=== PATIENT | female | born 1960 | race Caucasian/White ===

== ENCOUNTER 2024-08-23 06:42 | Day surgery (SDC) | payer MEDICARE, SELFPAY ==
[2024-08-16 10:11] VITALS: BMI 33.6
[2024-08-23] MEDS: LACTATED RINGERS 1000ML 1,000 ML 25 ML IV (07:09)
[2024-08-23 07:13] VITALS: BP 141/81; PULSE 65; RESP 18; TEMP 36.2; O2SAT 100
--- NOTE | 2024-08-23 07:29 | P.PNANES_ITS ---
[facility] Disclaimer: The information contained in this section may have been updated after the patient was seen, as this information can be updated by other users. Medical History Barretts esophagus Restless leg Surgical History History of esophagogastroduodenoscopy (EGD) History of surgery on lower extremity History of eyelid surgery Hx of breast reduction, elective Hx of cholecystectomy History of appendectomy Family History Other Cancer Family history of TIAs Family history of myocardial infarction Social History Smoking Status: Never smoker alcohol intake: current alcohol intake frequency: other substance use type: denies use current occupational status: retired Travel in the last 8 weeks: Inside the [place] [facility] Anesthesia Checklist Patient Identification Patient Identification: Arm Band Structural Data Admitted From: Home Planned Operative Procedure/s: EGD/Colonoscopy Consent for Planned Operative Procedure(s) Verified: Yes Verified Documents: Surgical Consent and History and Physical NPO Status Verified Time NPO: 00:00 Additional verifications Anesthesia Reactions: No Airway Assessment Mallampati Score:: Class II C-Spine Mobility Assessed: Yes TMJ Mobility Assessed: Yes Dentition: Good Dentition Neurological Assessment Level of Consciousness: Awake, Alert and Appropriate Anesthesia Plan Anesthesia Risk discussed: Yes Anesthesia Plan: Verified ASA Class: II Anesthesia Type: MAC
--- NOTE | 2024-08-23 07:46 | P.HP_ITS ---
History of Present Illness *Admission Date: 08/23/24 *Reason for visit:: Cox's esophagus and intractable heartburn and reflux and screening *History of present illness: Mrs. Ramirez is a 63-year-old female who is here for surveillance EGD secondary to history of Cox's esophagus and screening for colon cancer/screening colonoscopy. She does have intractable heartburn and reflux despite being on lansoprazole. The examination is deemed medically necessary for surveillance EGD and screening colonoscopy. The patient has been seen, interviewed and examined prior to the procedure by both myself and the anesthesia provider. [facility] Disclaimer: The information contained in this section may have been updated after the patient was seen, as this information can be updated by other users. Medical History Barretts esophagus Restless leg Surgical History History of esophagogastroduodenoscopy (EGD) History of surgery on lower extremity History of eyelid surgery Hx of breast reduction, elective Hx of cholecystectomy History of appendectomy Family History Other Cancer Family history of TIAs Family history of myocardial infarction Social History (Updated 08/23/24 @ 07:29 by Jacinto Rodarte CRNA) Smoking Status: Never smoker alcohol intake: current alcohol intake frequency: other substance use type: denies use current occupational status: retired Travel in the last 8 weeks: Inside the [place] Have you lived/traveled outside US in past 30 days?: No Contact w/someone who lives/traveled outside US past 30 days?: No Exposure to someone with infectious disease in past 14 days?: No Do you have a fever (greater than 100.4 F or 38 C)?: No Have you tested positive for COVID-19: No Exposed to someone with COVID-19 in past 14 days?: No Do you have a sore throat?: No Do you have a cough?: No Do you have any weakness?: No Are you experiencing any nausea/vomitting?: No Do you have any diarrhea?: No Are you experiencing any unusual bleeding?: No Do you have any muscle aches/pain?: No Do you have any abdominal pain?: No Are you experiencing loss of taste or smell?: No Other Medical History Have you received the Pneumonia Vaccine: Yes Review of Systems Review of Systems Review of systems (narrative): Negative *Cardiovascular Comments: Negative *Gastrointestinal Comments: Negative *Genitourinary Comments: Negative *Musculoskeletal Comments: Negative *Neurologic Comments: Negative Meds Home Medications and Allergies Home Medications ?Medication ?Instructions ?Recorded ?Confirmed ?Type lansoprazole 30 mg capsule,delayed 30 mg PO DAILY 07/04/24 08/23/24 History release losartan 25 mg tablet 25 mg PO DAILY 07/04/24 08/16/24 History ropinirole 2 mg tablet 2 mg PO TID 07/04/24 08/23/24 History semaglutide (weight loss) 1 mg/0.5 1 mg SQ WEEKLY 07/04/24 08/23/24 History mL subcutaneous pen injector sertraline 50 mg tablet 50 mg PO DAILY 07/04/24 08/16/24 History tramadol 50 mg tablet 50 mg PO DAILYP PRN Pain 07/04/24 08/16/24 History New Prescriptions to Start Prescriptions: Allergies Allergy/AdvReac Type Severity Reaction Status Date / Time No Known Allergies Allergy Verified 07/04/24 09:52 Exam Data for Last 24 hours Vital signs and Labs for Last 24 Hours: Temp Pulse Resp BP Pulse Ox O2 Del Method 97.1 F L 65 18 141/81 H 100 Room Air 08/23/24 07:13 08/23/24 07:13 08/23/24 07:13 08/23/24 07:13 08/23/24 07:13 08/23/24 07:13 *Routine HEENT Exam Head: Present normocephalic Eye: Present EOMI and PERRL ENT: Present mucous membranes moist *Routine Neck Exam Neck: Present supple *Routine Respiratory Exam Respiratory: Present CTA bilaterally *Routine Cardiovascular Exam Cardiovascular: Present RRR *Routine Abdominal Exam Abdominal: Present soft and normoactive bowel sounds; Absent tenderness *Routine Rectal Exam Rectal:: deferred *Routine Genitalia Exam Genitalia:: deferred *Routine Extremities Exam Extremities: Absent cyanosis, clubbing or edema *Routine Skin Exam Skin: Present warm; Absent rash *Routine Neurological Exam Neurological: Present alert and oriented X3 Assessment and Plan *Assessment and plan (1) GERD (gastroesophageal reflux disease): Status: Acute Category: Medical Code(s): K21.9 - Gastro-esophageal reflux disease without esophagitis (2) Short-segment Cox's esophagus: Status: Acute Category: Medical Code(s): K22.70 - Cox's esophagus without dysplasia (3) Screening for colon cancer: Status: Acute Category: Medical Code(s): Z12.11 - Encounter for screening for malignant neoplasm of colon Plan A/P: 1. Surveillance EGD secondary to Cox's and intractable GERD and initial screening colonoscopy is the preprocedural diagnosis. The patient will be anesthetized/sedated using MAC sedation. The patient has been seen and examined. Cardiac and lung assessment prior to the examination is stable. Proceed with planned EGD and colonoscopy
--- NOTE | 2024-08-23 07:49 | P.PCN_ITS ---
[facility] Procedure Note Date: 08/23/24 Time: 08:04 Procedure Note:: Upper Endoscopy Procedure Report: Esophagogastroduodenoscopy with cold biopsies Endoscopost: Sanjeev Lester II, MD Referring Physician: Goldie Champion MD [address] [place] [address], [address], [place] [address] Date of Procedure: August 23, 2024 Equipment: Olympus GIF 190 standard upper endoscope Sedation: MAC sedation Indications: Mrs. Ramirez is a 63-year-old female who is here for surveillance EGD secondary to Cox's esophagus. She did previously have an EGD with [facility] in December 2020 and at that time had short segment Cox's esophagus and I recommended 3-year surveillance interval. She also is having continued heartburn and reflux when lying down with some minor belching and throat firmness. Presently, she is on lansoprazole 30 mg and does state this has controlled her GERD symptoms better. The patient also states that she is improved with weight loss and she has been on semaglutide and lost approximately 40 pounds. She is not having any dysphagia but is due for EGD. She has never had a colonoscopy. The patient has some concerns about PPI therapy and risk of dementia. She does have a very strong family history of dementia and multiple family members. Procedure: Prior to the procedure, a history and physical exam was performed, and patient's medications and allergies were reviewed. The risks, benefits and alternatives of the sedation and procedure were discussed with the patient. All questions were answered and informed consent was obtained. The patient was brought to the procedure room. Patient identification and proposed procedure were verified by the physician and the nurse. The patient was placed in a left lateral decubitus position and the scope was passed under direct vision. Throughout the procedure, the patient's blood pressure, pulse, and oxygen saturations were monitored continuously. The upper GI endoscopy was accomplished without difficulty. The patient tolerated the procedure well. Findings: The scope was passed directly into the upper esophagus and advanced to the third portion of the duodenum. The post bulbar duodenum and duodenal bulb were normal with normal mucosa and conniventes. The scope was withdrawn through a normal duodenal bulb and pylorus into the stomach. There was bile reflux with linear reactive gastropathy of the antrum. There were a few fundic gland polyps in the body and fundus. Upon retroflexion there was a medium size 3 cm hiatal hernia. The diaphragmatic hiatus was at 38 cm from the incisors. The top of the gastric folds were at 35 cm from the incisors. Biopsies were taken from the antrum. The scope was then withdrawn into the esophagus. There was a single tongue of salmon-colored mucosa that extended to 32 cm from the incisors and this was examined by NBI with no dysplasia. Biopsies were obtained from this tongue of Cox's. There was no evidence of reflux esophagitis or rings or strictures. The remainder of the esophageal mucosa was normal. Impression: 1. Single tongue of salmon-colored mucosa/short segment Cox's (extending 3 cm from GE junction) 2. Medium size 3 cm hiatal hernia 3. Bile reflux with mild linear reactive gastropathy Plan: I will follow-up the biopsies. I would recommend continuation of lansoprazole. We will discuss additional treatment options for her chronic GERD. I will proceed with screening colonoscopy.
[2024-08-23 07:51] VITALS: O2SAT 100
--- NOTE | 2024-08-23 08:07 | HMH.PROCNOTE ---
[facility] Procedure Note Date: 08/23/24 Time: 08:15 Procedure Note:: Aborted colonoscopy Procedure Report: Sigmoidoscopy Endoscopist: Sanjeev Lester II, MD Referring physician: Goldie Champion MD [address] [place] [address], [address], [place] [address] Date of Procedure: August 23, 2024 Equipment: Olympus 190 variable stiffness pediatric colonoscope Sedation: MAC sedation Indication: Mrs. Ramirez is a 63-year-old female who is here for initial screening colonoscopy. She reports no abdominal pain, weight loss, change in her bowel habits or rectal bleeding. She reports no family history of colon cancer. Procedure: Prior to the procedure, a history and physical exam was performed, and patient's medications and allergies were reviewed. The risks, benefits and alternatives of the sedation and procedure were discussed with the patient. All questions were answered and informed consent was obtained. The patient was brought to the procedure room. Patient identification and proposed procedure were verified by the physician and the nurse. The patient was placed in a left lateral decubitus position and the scope was passed under direct vision. Throughout the procedure, the patient's blood pressure, pulse, and oxygen saturations were monitored continuously. The colonoscopy was accomplished without difficulty. The patient tolerated the procedure well. Findings: On digital rectal examination, there was normal rectal tone. There were no external hemorrhoids. The scope was then inserted through the anal canal into the rectum and advanced to 60 cm. There was abundant liquid brown stool proximally and the preparation was poor greatly impairing visibility. The procedure was thus aborted. Upon withdrawal, there were a few scattered diverticuli in the sigmoid colon. Impression: 1. Unprepped colonoscopy 2. Left-sided diverticulosis Plan: I would recommend fully prepped colonoscopy with improved bowel preparation.
[2024-08-23 08:16] VITALS: BP 113/64; PULSE 65; RESP 18; TEMP 36.2; O2SAT 93
[2024-08-23 08:26] VITALS: BP 111/64; PULSE 67; RESP 18; O2SAT 95
[2024-08-23 08:36] VITALS: BP 122/58; PULSE 64; RESP 18; O2SAT 97
[2024-08-23 09:20] VITALS: BP 120/61; PULSE 63; RESP 18; O2SAT 98
== END 2024-08-23 09:20 | disposition home or self-care (01) ==
PROVIDERS: Visit Provider Internal Medicine Gastroenterology
PROC: 0DJ08ZZ Inspection of Upper Intestinal Tract, Via Natural or Artificial Opening Endoscopic (ICD-10-PCS; CPT 45378; principal; 2024-08-23 08:00)
DX: K21.9 Gastro-esophageal reflux disease without esophagitis (principal); K22.70 Barrett's esophagus without dysplasia; Z12.11 Encounter for screening for malignant neoplasm of colon; K44.9 Diaphragmatic hernia without obstruction or gangrene; K31.9 Disease of stomach and duodenum, unspecified; K31.7 Polyp of stomach and duodenum; K57.30 Diverticulosis of large intestine without perforation or abscess without bleeding
CPT/HCPCS: 43239; G0121; J7120

== ENCOUNTER 2024-11-29 12:27 | Day surgery (SDC) | payer MEDICARE, SELFPAY ==
[2024-11-27 17:25] VITALS: BMI 34.6
[2024-11-29 13:42] VITALS: BP 126/60; PULSE 68; RESP 18; TEMP 36.2; O2SAT 98
[2024-11-29] MEDS: LACTATED RINGERS 1000ML 1,000 ML 50 ML IV (13:47)
--- NOTE | 2024-11-29 14:00 | P.PNANES_ITS ---
[facility] Disclaimer: The information contained in this section may have been updated after the patient was seen, as this information can be updated by other users. Medical History Barretts esophagus Restless leg Surgical History History of esophagogastroduodenoscopy (EGD) History of surgery on lower extremity History of eyelid surgery Hx of breast reduction, elective Hx of cholecystectomy History of appendectomy Family History Other Cancer Family history of TIAs Family history of myocardial infarction Social History (Updated 08/23/24 @ 07:29 by Jacinto Rodarte CRNA) Smoking Status: Never smoker alcohol intake: current alcohol intake frequency: other substance use type: denies use current occupational status: retired Travel in the last 8 weeks: Inside the [place] caffeine: No Have you lived/traveled outside US in past 30 days?: No Contact w/someone who lives/traveled outside US past 30 days?: No Exposure to someone with infectious disease in past 14 days?: No Do you have a fever (greater than 100.4 F or 38 C)?: No Have you tested positive for COVID-19: No Exposed to someone with COVID-19 in past 14 days?: No Do you have a sore throat?: No Do you have a cough?: No Do you have any weakness?: No Do you have any diarrhea?: No Are you experiencing any unusual bleeding?: No Do you have any muscle aches/pain?: No Do you have any abdominal pain?: No Are you experiencing loss of taste or smell?: No [facility] Anesthesia Checklist Patient Identification Patient Identification: Arm Band Structural Data Admitted From: Home Planned Operative Procedure/s: Colonoscopy Consent for Planned Operative Procedure(s) Verified: Yes Verified Documents: Surgical Consent and History and Physical NPO Status Verified Time NPO: 11:00 (finished prep) Additional verifications Anesthesia Reactions: No Airway Assessment Mallampati Score:: Class II C-Spine Mobility Assessed: Yes TMJ Mobility Assessed: Yes Dentition: Good Dentition Neurological Assessment Level of Consciousness: Awake, Alert and Appropriate Anesthesia Plan Anesthesia Risk discussed: Yes Anesthesia Plan: Verified ASA Class: II Anesthesia Type: MAC
[2024-11-29 15:46] VITALS: O2SAT 100
--- NOTE | 2024-11-29 15:48 | EXP.HP ---
History of Present Illness *Admission Date: 11/29/24 *Reason for visit:: Screening for colon cancer *History of present illness: Mrs. Ramirez is a 64-year-old female who is here for initial screening colonoscopy. The patient did have an attempted colonoscopy on August 23, 2024 but was unprepped. The examination is deemed medically necessary for screening colonoscopy. The patient has been seen, interviewed and examined prior to the procedure by both myself and the anesthesia provider. [facility] Disclaimer: The information contained in this section may have been updated after the patient was seen, as this information can be updated by other users. Medical History Barretts esophagus Restless leg Surgical History History of esophagogastroduodenoscopy (EGD) History of surgery on lower extremity History of eyelid surgery Hx of breast reduction, elective Hx of cholecystectomy History of appendectomy Family History Other Cancer Family history of TIAs Family history of myocardial infarction Social History (Updated 08/23/24 @ 07:29 by Jacinto Rodarte CRNA) Smoking Status: Never smoker alcohol intake: current alcohol intake frequency: other substance use type: denies use current occupational status: retired Travel in the last 8 weeks: Inside the [place] caffeine: No Have you lived/traveled outside US in past 30 days?: No Contact w/someone who lives/traveled outside US past 30 days?: No Exposure to someone with infectious disease in past 14 days?: No Do you have a fever (greater than 100.4 F or 38 C)?: No Have you tested positive for COVID-19: No Exposed to someone with COVID-19 in past 14 days?: No Do you have a sore throat?: No Do you have a cough?: No Do you have any weakness?: No Do you have any diarrhea?: No Are you experiencing any unusual bleeding?: No Do you have any muscle aches/pain?: No Do you have any abdominal pain?: No Are you experiencing loss of taste or smell?: No Other Medical History Have you received the Pneumonia Vaccine: Yes Review of Systems Review of Systems Review of systems (narrative): Negative *Cardiovascular Comments: Negative *Gastrointestinal Comments: Negative *Genitourinary Comments: Negative *Musculoskeletal Comments: Negative *Neurologic Comments: Negative Meds Home Medications and Allergies Home Medications ?Medication ?Instructions ?Recorded ?Confirmed ?Type lansoprazole 30 mg capsule,delayed 30 mg PO DAILY 07/04/24 11/29/24 History release losartan 25 mg tablet 25 mg PO DAILY 07/04/24 11/29/24 History ropinirole 2 mg tablet 2 mg PO TID 07/04/24 11/29/24 History sertraline 50 mg tablet 50 mg PO DAILY 07/04/24 11/29/24 History New Prescriptions to Start Prescriptions: Allergies Allergy/AdvReac Type Severity Reaction Status Date / Time No Known Allergies Allergy Verified 11/29/24 13:42 Exam Data for Last 24 hours Vital signs and Labs for Last 24 Hours: Temp Pulse Resp BP Pulse Ox O2 Del Method O2 Flow Rate 97.2 F L 68 18 126/60 98 Nasal Cannula 5 11/29/24 13:42 11/29/24 13:42 11/29/24 13:42 11/29/24 13:42 11/29/24 13:42 11/29/24 15:46 11/29/24 15:46 I & O for Last 24 hours: Intake & Output 11/26/24 11/27/24 11/28/24 11/29/24 23:59 23:59 23:59 23:59 Weight 221 lb *Routine HEENT Exam Head: Present normocephalic Eye: Present EOMI and PERRL ENT: Present mucous membranes moist *Routine Neck Exam Neck: Present supple *Routine Respiratory Exam Respiratory: Present CTA bilaterally *Routine Cardiovascular Exam Cardiovascular: Present RRR *Routine Abdominal Exam Abdominal: Present soft and normoactive bowel sounds; Absent tenderness *Routine Rectal Exam Rectal:: deferred *Routine Genitalia Exam Genitalia:: deferred *Routine Extremities Exam Extremities: Absent cyanosis, clubbing or edema *Routine Skin Exam Skin: Present warm; Absent rash *Routine Neurological Exam Neurological: Present alert and oriented X3 Assessment and Plan *Assessment and plan (1) Screening for colon cancer: Status: Acute Category: Medical Code(s): Z12.11 - Encounter for screening for malignant neoplasm of colon Plan A/P: 1. Screening for colon cancer is the preprocedural diagnosis. The patient will be anesthetized/sedated using MAC sedation. The patient has been seen and examined. Cardiac and lung assessment prior to the examination is stable. Proceed with planned screening colonoscopy.
--- NOTE | 2024-11-29 15:49 | P.PCN_ITS ---
[facility] Procedure Note Date: 11/29/24 Time: 16:08 Procedure Note:: Colonoscopy Procedure Report: Colonoscopy with cold snare polypectomy Endoscopist: Sanjeev Lester II, MD Referring physician: Goldie Chen MD, [address] [place] [address], [address], [place] [address] Date of Procedure: November 29, 2024 Equipment: Olympus 190 variable stiffness pediatric colonoscope Sedation: MAC sedation Indication: Mrs. Ramirez is a 64-year-old female who is here for initial screening colonoscopy. She had an attempted colonoscopy on 08/23/2024 but her colonoscopy was inadequately prepped. She reports no abdominal pain, weight loss, change in her bowel habits or rectal bleeding. She reports no family history of colon cancer. Procedure: Prior to the procedure, a history and physical exam was performed, and patient's medications and allergies were reviewed. The risks, benefits and alternatives of the sedation and procedure were discussed with the patient. All questions were answered and informed consent was obtained. The patient was brought to the procedure room. Patient identification and proposed procedure were verified by the physician and the nurse. The patient was placed in a left lateral decubitus position and the scope was passed under direct vision. Throughout the procedure, the patient's blood pressure, pulse, and oxygen saturations were monitored continuously. The colonoscopy was accomplished without difficulty. The patient tolerated the procedure well. Findings: On digital rectal examination there was normal rectal tone. There were no external hemorrhoids. The colonoscope was introduced through the anal canal to the rectum and advanced to the cecum. The ileocecal valve and appendiceal orifice were identified. The scope was advanced a short distance into the ileum which appeared grossly normal. The scope was then withdrawn into the colon. The cecum, ascending and transverse colon and mucosa were grossly normal. There was a diminutive 4 mm descending colon polyp removed via cold snare polypectomy. There were scattered diverticuli throughout the descending and sigmoid colon (LEFT colon). There was moderate colonic redundancy. The rectum itself was normal. Upon retroflexion within the rectum there were grade 1-2 internal hemorrhoids. The preparation was excellent throughout with [place] Preparation Score of 9. The cecal time was 12 minutes. Impression: 1. Diminutive 4 mm descending colon polyp 2. Grade 1-2 internal hemorrhoids Plan: I will follow-up the polyp histology and recommend repeat surveillance colonoscopy again in 7 to 10 years based upon the pathology.
[2024-11-29 16:13] VITALS: BP 103/60; PULSE 69; RESP 18; TEMP 36.3; O2SAT 92
[2024-11-29 16:23] VITALS: BP 119/64; PULSE 72; RESP 18; O2SAT 99
[2024-11-29 16:33] VITALS: BP 122/67; PULSE 61; RESP 18; O2SAT 97
== END 2024-11-29 16:51 | disposition home or self-care (01) ==
PROVIDERS: PCP Internal Medicine Geriatric Medicine; Visit Provider Internal Medicine Gastroenterology
PROC: 0DJD8ZZ Inspection of Lower Intestinal Tract, Via Natural or Artificial Opening Endoscopic (ICD-10-PCS; CPT 45378; principal; 2024-11-29 14:30)
DX: D12.4 Benign neoplasm of descending colon (principal); K57.30 Diverticulosis of large intestine without perforation or abscess without bleeding; K64.8 Other hemorrhoids; Z12.11 Encounter for screening for malignant neoplasm of colon
CPT/HCPCS: 45385; J2704; J7120